=== PATIENT | female | born 1970 | race Caucasian/White ===

== ENCOUNTER 2020-11-09 15:29 | Emergency (ER) | payer OTHER ==
[2020-11-09 15:41] VITALS: BP 138/79; PULSE 88; TEMP 99; BMI 26.6
== END 2020-11-09 16:02 | disposition home or self-care (01) ==
LOC: FER 15:29
DX: I83.811 Varicose veins of right lower extremity with pain (principal); I80.01 Phlebitis and thrombophlebitis of superficial vessels of right lower extremity
CPT/HCPCS: 99283-25